=== PATIENT | male | born 1955 | race Caucasian/White ===

== ENCOUNTER → 2018-10-02 | Outpatient (CLI) | payer BC ==
[~2018-10-02] MED LIST: IOPAMIDOL 370 MG/ML 200 ML INFUS..BTL INJ ONE; SODIUM CHLORIDE 0.9% 100 ML 100 ML ONE
[2018-10-02 16:32] LABS: BLOOD UREA NITROGEN 24 mg/dL (7-26); BUN/CREATININE RATIO 26 (6-25); CREATININE, SERUM 0.94 mg/dL (0.72-1.25); EST GLOMERULAR FILTRATION RATE > 60 ML/MIN (60-)
--- NOTE | 2018-10-02 18:01 | Diagnostic Imaging Report ---
CTA NECK HISTORY: Right carotid stenosis COMPARISON: None. TECHNIQUE: CTA of the neck was performed with intravenous iodine based contrast. Coronal, sagittal, 3-D, and oblique maximum intensity projection reformations were created. One or more of the following dose reduction techniques were used: Automated exposure control, adjustment of the mA and/or kV according to patient size, and/or utilization of iterative reconstruction technique. 100 mL of Isovue-370 were administered. Streak and noise artifacts obscure some details. DISCUSSION: If present, any cervical carotid stenosis will be measured as a percentage relative to the [place] artery distal to the stenosis. There are mild calcifications in the aortic arch and proximal great vessels. Right Carotid: Severe calcified plaque at the right carotid bulb causes up to 90% focal stenosis in the proximal right internal carotid artery. Left Carotid: Moderate calcified plaque at the left carotid bulb causes less than 50% focal stenosis in the proximal left internal carotid artery. Right vertebral artery: At least mild focal stenosis at the ostium due to calcified plaque. Otherwise patent and without abnormalities. Left vertebral artery: At least mild focal stenosis at the ostium due to calcified plaque. Mild calcified plaque at the V3 segment without significant stenosis. Otherwise patent and without abnormalities. The intracranial arterial vasculature is partially visualized. Bilateral carotid siphon calcifications are present. Additional findings: Mild mosaic attenuation in the upper lungs, right greater than left, is nonspecific. Mild scarring is seen in the lung apices. There is a small calcified granuloma along the upper right major fissure. Minimal scattered paranasal sinus mucosal thickening is present. There are mild to moderate degenerative changes throughout the spine. Approximately 0.8 cm lucent lesion in the C5 vertebral body is nonspecific. IMPRESSION: 1. Severe RIGHT carotid bulb calcified plaque causes up to 90% focal stenosis in the proximal RIGHT internal carotid artery. 2. Moderate LEFT carotid bulb calcified plaque without significant stenosis. 3. At least mild focal stenosis in the bilateral vertebral artery ostia due to calcified plaque. Mild left vertebral artery V3 segment calcification without significant stenosis. Signed by: Dr. Greg Alvarez M.D. on 10/02/2018 5:58 PM
== END ==
LOC: CT 15:35
PROVIDERS: ATTEND Internal Medicine Cardiovascular Disease
DX: I65.21 Occlusion and stenosis of right carotid artery (principal)
CPT/HCPCS: 36415; 70498; 82565; 84520; Q9967

== ENCOUNTER 2018-10-11 05:55 | Inpatient (IN) | payer BC ==
[2018-10-09 16:21] LABS: BASOPHILS % 0.6 % (0.0-1.0); EOSINOPHILS # (AUTO) 0.2 (0.0-0.4); EOSINOPHILS % 3.5 % (0.0-6.0); HEMATOCRIT 43.5 % (38.2-49.6); HEMOGLOBIN 14.9 g/dL (14.0-18.0); LYMPHOCYTES # (AUTO) 1.1 (1.0-3.2); LYMPHOCYTES % 24.7 % (18.0-39.1); MEAN CORPUSCULAR HEMOGLOBIN 32.4 pg (28-32); MEAN CORPUSCULAR HGB CONC 34.3 g/dL (31-35); MEAN CORPUSCULAR VOLUME 94.6 fL (81-99); MONOCYTES # (AUTO) 0.4 (0.2-0.8); MONOCYTES % 9.3 % (4.4-11.3); NEUTROPHILS # (AUTO) 2.8 (2.1-6.9); NEUTROPHILS % 61.5 % (38.7-80.0); PLATELET COUNT 188 x10e3/uL (140-360)
[2018-10-09 16:28] LABS: INR 0.92; PROTHROMBIN TIME 13.2 seconds (11.9-14.5)
[2018-10-09 16:33] LABS: ANION GAP 13.9 mmol/L (8-16); CALCIUM 9.9 mg/dL (8.4-10.2); CREATININE, SERUM 1.23 mg/dL (0.72-1.25); POTASSIUM 3.9 mmol/L (3.5-5.1)
--- NOTE | 2018-10-09 16:50 | Diagnostic Imaging Report ---
EXAMINATION: PA and lateral views of the chest. COMPARISON: None CLINICAL HISTORY: Preadmission protocol, carotid surgery DISCUSSION: Lines/tubes: None. Lungs: The lungs are well inflated and clear. No pneumonia or pulmonary edema. Pleura: No pleural effusion or pneumothorax. Heart and mediastinum: The cardiomediastinal silhouette is normal. Bones and soft tissues: No acute bony abnormalities. IMPRESSION: No acute cardiopulmonary abnormalities. Signed by: Dr. Felcie Gerard M.D. on 10/09/2018 4:46 PM
[2018-10-11] VITALS (13 sets, daily range): BP systolic 117–149; BP diastolic 67–83
[~2018-10-11] VITALS: Ht 177.8 cm; Wt 103.0 kg
[~2018-10-11 05:55] MED LIST changes: +ASPIRIN81 MG; -IOPAMIDOL 370 MG/ML 200 ML INFUS..BTL INJ ONE; +METOPROLOL; -SODIUM CHLORIDE 0.9% 100 ML 100 ML ONE
--- OUTSIDE RECORDS SUMMARY | 2018-10-11 05:57 | XMS REPORT ---
Author [facility] Address Unknown Phone Unavailable Care Team Providers Care Pewter Caster Name Role Phone SIMBA JARQUIN Unavailable Unavailable ALINA PHILLIPS Unavailable Unavailable Problems This patient has no known problems. Allergies, Adverse Reactions, Alerts This patient has no known allergies or adverse reactions. Medications This patient has no known medications. Results Test Description Test Time Test Comments Text Results Atomic Results Result Comments CHEST 2 VIEWS 2018-10-09 16:46:00 [place] [address] Patient Name: ALINA LYNN MR #: [id number] : 1955 Age/Sex: 63/M Req #: [id number] Adm Physician: Ordered by: SIMBA JARQUIN MD Report #: [id number] Location: OR Room/Bed: Procedure: [id number] DX/CHEST 2 VIEWS Exam Date: Exam Time: REPORT STATUS: Signed EXAMINATION: PA and lateral views of the chest. COMPARISON: None CLINICAL HISTORY: Preadmission protocol, carotid surgery DISCUSSION: Lines/tubes: None. Lungs: The lungs are well inflated and clear. No pneumonia or pulmonary edema. Pleura: No pleural effusion or pneumothorax. Heart and mediastinum: The cardiomediastinal silhouette is normal. Bones and soft tissues: No acute bony abnormalities. IMPRESSION: No acute cardiopulmonary abnormalities. Signed by: Dr. Peri Herrera M.D. on 10/09/2018 4:46 PM Dictated By: PERI HERRERA MD 45 Transcribed By: GÉNESIS on 10/09/181645 COPY TO: SIMBA JARQUIN MD CTA NECK 2018-10-02 17:44:00 [place] [address] Patient Name: ALINA LYNN MR #: [id number] : 1955 Age/Sex: 63/M Req #: [id number] Adm Physician: Ordered by: ALINA PHILLIPS MD Report #: [id number] Location: CT Room/Bed: Procedure: [id number] CT/CTA NECK Exam Date: 10/02/18 Exam Time: 1702 REPORT STATUS: Signed CTA NECK HISTORY: Right carotid stenosis COMPARISON: None. TECHNIQUE: CTA of the neck was performed with intravenous iodine based contrast. Coronal, sagittal, 3-D, and oblique maximum intensity projection reformations were created. One or more of the following dose reduction techniques were used: Automated exposure control, adjustment of the mA and/or kV according to patient size, and/or utilization of iterative reconstruction technique. 100 mL of Isovue-370 were administered. Streak and noise artifacts obscure some details. DISCUSSION: If present, any cervical carotid stenosis will be measured as a percentage relative to the [place] artery distal to the stenosis. There are mild calcifications in the aortic arch and proximal great vessels. Right Carotid: Severe calcified plaque at the right carotid bulb causes up to 90% focal stenosis in the proximal right internal carotid artery. Left Carotid: Moderate calcified plaque at the left carotid bulb causes less than 50% focal stenosis in the proximal left internal carotid artery. Right vertebral artery: At least mild focal stenosis at the ostium due to calcified plaque. Otherwise patent and without abnormalities. Left vertebral artery: At least mild focal stenosis at the ostium due to calcified plaque. Mild calcified plaque at the V3 segment without significant stenosis. Otherwise patent and without abnormalities. The intracranial arterial vasculature is partially visualized. Bilateral carotid siphon calcifications are present. Additional findings: Mild mosaic attenuation in the upper lungs, right greater than left, is nonspecific. Mild scarring is seen in the lung apices. There is a small calcified granuloma along the upper right major fissure. Minimal scattered paranasal sinus mucosal thickening is present. There are mild to moderate degenerative changes throughout the spine. Approximately 0.8 cm lucent lesion in the C5 vertebral body is nonspecific. IMPRESSION: 1. Severe RIGHT carotid bulb calcified plaque causes up to 90% focal stenosis in the proximal RIGHT internal carotid artery. 2. Moderate LEFT carotid bulb calcified plaque without significant stenosis. 3. At least mild focal stenosis in the bilateral vertebral artery ostia due to calcified plaque. Mild left vertebral artery V3 segment calcification without significant stenosis. Signed by: Dr. Greg Alvarez M.D. on 10/02/2018 5:58 PM Dictated By: GREG ALVAREZ MD 58 Transcribed By: GÉNESIS on 10/02/181757 COPY TO: ALINA PHILLIPS MD
[2018-10-11] MEDS ORDERED: MUPIROCIN 2% OINT 22 GM TUBE ONE (07:12)
[2018-10-11] MEDS ORDERED: LIDOCAINE HCL 2% 2 ML AMP ONE (07:12)
[2018-10-11] MEDS ORDERED: PROTAMINE SULFATE 10 MG/ML 5 ML VIAL ONE (07:12)
[2018-10-11] MEDS ORDERED: HEPARIN SOD (PORCINE) 5,000 UNIT/ML VIAL ONE ×2 (07:12→07:17)
[2018-10-11] MEDS ORDERED: GELATIN SPONGE 12-7MM ONE (07:13)
[2018-10-11] MEDS ORDERED: SODIUM CHLORIDE 0.9% 500ML 500 ML ONE (07:13)
[2018-10-11] MEDS ORDERED: THROMBIN FOR SOLN 5,000 UNIT VIAL ONE (07:13)
[2018-10-11] MEDS ORDERED: LIDOCAINE HCL 4% 50 ML BTL ONE (07:59)
[2018-10-11] MEDS ORDERED: LIDOCAINE HCL (LTA) 4 ML SOLN ONE (08:00)
[2018-10-11] MEDS ORDERED: VANCOMYCIN 1GM/NS 250 ML 250 ML ONE (08:31)
[2018-10-11] MEDS ORDERED: FENTANYL CITRATE/PF 100MCG/2 ML INJ ONE ×2 (11:07→17:55)
--- NOTE | 2018-10-11 12:00 | NUR ---
Patient received from Recovery Room via his own bed after receiving report. Right carotid dressing is dry and intact with Ice bag upon it. V/S are stable. Denies any pain at this time. Domitila, SO at his side.
[2018-10-11] MEDS ORDERED: MORPHINE SULFATE 2 MG/ML SYR 1ML IV PRN ×3 (13:00)
[2018-10-11] MEDS: SODIUM CHLORIDE 0.9% 1000ML 1,000 ML IV SCH (13:00)
[2018-10-11] MEDS ORDERED: MORPHINE SULFATE INJ 4 MG/ML INJ 1ML IV PRN ×3 (13:15)
[2018-10-11] MEDS ORDERED: LABETALOL HCL 20 MG/4 ML SYRINGE IV PRN (14:00)
[2018-10-11] MEDS ORDERED: HYDROCODONE/APAP 5MG-325MG TAB PO PRN ×2 (14:00)
[2018-10-11] MEDS ORDERED: ONDANSETRON HCL 4 MG ORAL DISINTEGRATING TAB PO PRN (14:00)
[2018-10-11] MEDS ORDERED: HEPARIN SOD/SOD CHLORIDE 1,000 ML ONE (15:37)
--- NOTE | 2018-10-11 17:00 | NUR ---
Patient ate sandwich and drank fluids and tolerated well. No C/o of nausea or vomiting. Ice pack mostly on to right carotid dressing site and tolerating well. V/S are stable.
[2018-10-11] MEDS ORDERED: KETOROLAC TROMETHAMINE 30 MG/ML VIAL ONE (17:29)
[2018-10-11] MEDS ORDERED: EPHEDRINE SULFATE INJ 50 MG/10 ML SYR ONE (17:29)
[2018-10-11] MEDS ORDERED: ROCURONIUM BROMIDE 10 MG/ML 5ML VIAL ONE (17:29)
[2018-10-11] MEDS ORDERED: LIDOCAINE HCL 2% LOCAL INJ 5 ML SDV VIAL INJ ONE (17:29)
[2018-10-11] MEDS ORDERED: SEVOFLURANE INHAL SOLN 250 ML PEN BTL ONE (17:29)
[2018-10-11] MEDS ORDERED: ACETAMINOPHEN 1000 MG/100 ML IV ONE (17:29)
[2018-10-11] MEDS ORDERED: ONDANSETRON HCL INJ 2MG/ML 2ML 2 MG/ML VIAL ONE (17:29)
[2018-10-11] MEDS ORDERED: SUCCINYLCHOLINE 200 MG/10 ML SYR ONE (17:29)
[2018-10-11] MEDS ORDERED: DEXAMETHASONE SOD PHOS INJ 4 MG/ML VIAL ONE (17:29)
[2018-10-11] MEDS ORDERED: PROPOFOL IV EMULSION 10 MG/ML 20 ML VIAL ONE (17:29)
[2018-10-11] MEDS ORDERED: MIDAZOLAM HCL 2 MG/2 ML VIAL ONE (17:55)
[2018-10-11] MEDS ORDERED: VANCOMYCIN 1GM/NS 250 ML 250 ML IV ONE (18:00)
[2018-10-12] VITALS (11 sets, daily range): BP systolic 110–131; BP diastolic 64–92
--- NOTE | 2018-10-12 00:04 | Operative Report ---
DATE OF PROCEDURE: 10/11/2018 SURGEON: Alfa Moscoso MD ACCESS RN: Pankaj Vallejo. PREOPERATIVE DIAGNOSIS: Right carotid stenosis. POSTOPERATIVE DIAGNOSIS: Right carotid stenosis. TITLE OF OPERATION: Right carotid endarterectomy. DESCRIPTION OF PROCEDURE: After the satisfactory accomplishment of general anesthesia, the patient's right neck was prepped and draped in sterile fashion. A standard right carotid incision was made along the anterior border of the sternomastoid muscle. The incision was carried down through the subcutaneous tissues to expose the right common carotid artery. The vessel was dissected free from the surrounding tissues and looped with the vessel loop. The dissection was carried distally to expose the internal carotid artery and the external carotid artery and its branches. Care was taken to identify and preserve all nerve structures in the region. Systemic heparin was given through a central vein canula for the purposes of anticoagulation. The common, external and internal carotid arteries were briefly crossclamped. A long incision was made in the common carotid artery and carried distally through the bifurcation and well up into the internal carotid artery. A severe obstructing atherosclerotic plaque was quickly identified. The plaque was removed using standard endarterectomy techniques. Following this, the surface of the vessel was smoothed and all loose debris was carefully removed. Heparinized saline flushes were routinely employed. An indwelling shunt had been inserted into the common carotid artery distally and the internal carotid artery proximally, and this had been used to preserve blood flow to the right side of the brain throughout the endarterectomy procedure. Once the vessel was smoothed and flushed free from all debris with heparinized saline, a previously constructed Dacron patch was brought into the operative field and used to close the arteriotomy site. Running 7-0 prolene was used for this patch closure. Prior to completing the closure, the shunt was removed and the vessel was flushed free from all area and debris. Once the sutures were tied, excellent pulses were located within the patch area and beyond. Protamine was given to counteract the effects of the heparin. All bleeding points were cauterized, ligated, or oversewn. The wound was thoroughly irrigated with antibiotic solution and then closed in layers with interrupted 2-0 Vicryl for the deep tissues, running 2-0 Vicryl for the subcutaneous tissues, and a Monocryl subcuticular stitch for the skin. The patient tolerated the procedure well and was returned to the Intensive Care Unit in good condition. MD ANDREW Chambers/JAZ /[id number]
--- NOTE | 2018-10-12 00:35 | Consultation ---
DATE OF CONSULTATION: Pulmonary Critical Care Consultation. CHIEF COMPLAINT: Hypertension and recent carotid endarterectomy. HISTORY OF PRESENT ILLNESS: The patient is a 63-year-old man. He has a history of degenerative arthritis of the hip and had a preoperative evaluation by Cardiology. He was discovered to have a 90% right carotid artery stenosis and was subsequently referred to Vascular Surgery. He underwent a carotid endarterectomy without incident. He has Dacron graft placed. A shunt was used. He is now in the intensive care unit and notes some mild headache, but no focal neurological abnormalities. He is not complaining of chest pain. PAST SURGICAL HISTORY: 1. Status post coronary artery stent. 2. Status post recent carotid endarterectomy. PAST MEDICAL HISTORY: 1. Hypertension. 2. Hyperlipidemia. 3. Prior myocardial infarctions. 4. Degenerative arthritis of the hip. SOCIAL HISTORY: The patient is not an active smoker or drinker. FAMILY HISTORY: Family history is noncontributory. REVIEW OF SYSTEMS: There is no history of fever. He has a mild headache. There is no sore throat. He has no neck pain. He has no chest pain. He has no difficulty breathing and no cough. There is no abdominal pain. He has no focal neurological complaints. PHYSICAL EXAMINATION: VITAL SIGNS: The patient is afebrile. The vital signs are stable. HEENT: Shows no facial swelling or erythema. Nasal mucosa is normal. The oropharynx is normal. LYMPHATIC: Shows no submandibular, cervical, supraclavicular adenopathy. CARDIAC: Reveals a regular rate and rhythm with normal S1 and S2. There are no murmurs or rubs. CHEST: Auscultation of lungs shows clear breath sounds bilaterally. There is no wheezing. ABDOMEN: Soft, nontender. There is no rebound or guarding. EXTREMITIES: Shows sequential venous compression devices in place. NEUROLOGIC: Shows no focal abnormalities. IMPRESSION: 1. Hypertension. 2. Recent carotid endarterectomy. 3. Degenerative arthritis of the hip. PLAN: 1. The patient will continue to be monitored overnight in the intensive care unit. 2. Remove Charlton. 3. Ambulate as soon as possible. MD JOSÉ Merchant/JAZ /[id number]
[2018-10-12] MEDS: SODIUM CHLORIDE 0.9% 1000ML 1,000 ML IV SCH ×2 (01:16→10:00)
[2018-10-12 04:37] LABS: BASOPHILS % 0.1 % (0.0-1.0); EOSINOPHILS # (AUTO) 0.2 (0.0-0.4); HEMOGLOBIN 12.7 g/dL (14.0-18.0); LYMPHOCYTES # (AUTO) 0.9 (1.0-3.2); LYMPHOCYTES % 9.6 % (18.0-39.1); MEAN CORPUSCULAR HEMOGLOBIN 32.2 pg (28-32); MEAN CORPUSCULAR HGB CONC 33.4 g/dL (31-35); MEAN CORPUSCULAR VOLUME 96.4 fL (81-99); MONOCYTES # (AUTO) 0.8 (0.2-0.8); MONOCYTES % 8.6 % (4.4-11.3); NEUTROPHILS # (AUTO) 7.5 (2.1-6.9); NEUTROPHILS % 79.4 % (38.7-80.0); PLATELET COUNT 142 x10e3/uL (140-360); RED BLOOD COUNT 3.94 x10e6/uL (4.3-5.7); RED CELL DISTRIBUTION WIDTH 13.1 % (11.7-14.4)
[2018-10-12 04:53] LABS: ANION GAP 9.4 mmol/L (8-16); BLOOD UREA NITROGEN 15 mg/dL (7-26); BUN/CREATININE RATIO 19 (6-25); CALCIUM 8.7 mg/dL (8.4-10.2); CARBON DIOXIDE 24 mmol/L (22-29); CHLORIDE 107 mmol/L (98-107); CREATININE, SERUM 0.77 mg/dL (0.72-1.25); EST GLOMERULAR FILTRATION RATE > 60 ML/MIN (60-); GLUCOSE 167 mg/dL (74-118); POTASSIUM 4.4 mmol/L (3.5-5.1); SODIUM 136 mmol/L (136-145)
[2018-10-12] MEDS ORDERED: ENOXAPARIN SOD INJ 40 MG/0.4 ML SYR SC SCH (09:00)
[2018-10-12] MEDS ORDERED: ASPIRIN 81 MG CHEW TAB PO SCH (09:00)
[2018-10-12] MEDS ORDERED: METOPROLOL TARTRATE 25 MG TAB PO SCH (09:00)
--- NOTE | 2018-10-12 09:12 | NUR ---
hill and art line d/c'd with no complications, patient ambulated to bathroom and voided.
--- NOTE | 2018-10-12 12:23 | Consultation ---
DATE OF CONSULTATION: 10/11/2018 REASON FOR CONSULTATION: Status post carotid stenosis. CONSULTING PHYSICIAN: Alfa Moscoso MD HISTORY OF PRESENT ILLNESS: This is a pleasant 63-year-old male, who has a history of right carotid stenosis and he underwent a right carotid endarterectomy and was doing good. He was transferred to ICU for closer observation. He is awake, alert, and oriented x3. No complaint of chest pain, dizziness, or shortness of breath. PAST MEDICAL HISTORY: CAD with cardiac stent, hyperlipidemia, hypertension, degenerative joint disease, and right carotid stenosis. PAST SURGICAL HISTORY: Right hip surgery and recent right carotid endarterectomy. FAMILY HISTORY: Noncontributory. SOCIAL HISTORY: He lives at home with family. No smoking. No drinking. MEDICATIONS: See med list. ALLERGIES: HE IS NOT ALLERGIC TO ANY MEDICATION. REVIEW OF SYSTEMS: Negative except as mentioned above. PHYSICAL EXAMINATION: VITAL SIGNS: Temperature 98.9, heart rate 74, blood pressure 124/72, respirations 20, and oxygen saturation 99% on 2 L nasal cannula. GENERAL: He is awake, alert, and oriented x3. HEENT: Mucous membranes are moist. NECK: Supple. LUNGS: Bilaterally clear to auscultation. CARDIOVASCULAR: S1, S2 present. No murmur noted. ABDOMEN: Soft. NEUROLOGIC: Intact. EXTREMITIES: With no edema. LABORATORY DATA: Sodium 136, potassium 4.4, chloride 107, CO2 of 24, BUN 15, creatinine 0.77, and glucose 167. White blood cell 9.42, hemoglobin 12.7, hematocrit 38.0, and platelets 142. PT 13.2, PTT 28.0, and INR 0.92. IMPRESSION: 1. Right carotid stenosis. 2. Coronary artery disease with stents. 3. Hypertension. 4. History of myocardial infarction. PLAN: 1. He is status post right carotid endarterectomy and doing good. 2. It is okay to discontinue arterial line and Charlton catheter. 3. Out of bed with water quality assistant. 4. Okay to transfer out of ICU and possible discharge home when he is feeling better and all vital signs remain stable. 5. We will continue his home medications. Further cardiac workup pending clinical course. Thank you for this consultation. Dictated by Dulce Pavon, MADY Alex [place], MD PNI/MODL /[id number]
[2018-10-12] MEDS ORDERED: ATORVASTATIN CA20 MG PO (14:46)
[2018-10-12] MEDS ORDERED: ATORVASTATIN 20 MG TAB PO SCH (21:00)
== END 2018-10-12 15:00 | disposition home or self-care (01) | DRG 39 ==
LOC: OR 05:55 → PACU V 11:24 → ICU 11:57
PROVIDERS: ADMIT Thoracic Surgery (Cardiothoracic Vascular Surgery); ATTEND Thoracic Surgery (Cardiothoracic Vascular Surgery)
PROC: 03UK0JZ Supplement Right Internal Carotid Artery with Synthetic Substitute, Open Approach (ICD-10-PCS; 2018-10-11)
PROC: 03CK0ZZ Extirpation of Matter from Right Internal Carotid Artery, Open Approach (ICD-10-PCS; principal; 2018-10-11 07:30)
DX: I65.21 Occlusion and stenosis of right carotid artery (principal); M16.10 Unilateral primary osteoarthritis, unspecified hip; E78.5 Hyperlipidemia, unspecified; I10 Essential (primary) hypertension; I25.10 Atherosclerotic heart disease of native coronary artery without angina pectoris; Z95.5 Presence of coronary angioplasty implant and graft; I25.2 Old myocardial infarction; Z79.82 Long term (current) use of aspirin
CPT/HCPCS: 36415; 71046; 80048; 85025; 85610; 85730; 86850; 86900; 86920; 88304; 88311; 93005; 96361; C1768; J1100; J1644; J1650; J1885; J2001; J2250; J2270; J2405; J2720; J3370; J7030; J7040

== ENCOUNTER → 2019-07-01 | Outpatient (CLI) | payer BC ==
[~2019-07-01] MED LIST changes: +ATORVASTATIN CA20 MG PO
== END ==
LOC: CARD 14:21
PROVIDERS: ATTEND Internal Medicine Critical Care Medicine
DX: I65.22 Occlusion and stenosis of left carotid artery (principal)
CPT/HCPCS: 93880